=== PATIENT | female | born 1995 | race Caucasian/White ===

== ENCOUNTER 2017-03-10 21:40 | Emergency (ER) | payer MEDICAID ==
[~2017-03-10] VITALS: Ht 152.4 cm; Wt 67.3 kg
[2017-03-10 23:48] VITALS: BP 107/70
== END 2017-03-10 23:48 | disposition home or self-care (01) ==
LOC: ED 21:40
DX: R11.10 Vomiting, unspecified (principal); N63.0 Unspecified lump in unspecified breast; R10.9 Unspecified abdominal pain; R19.7 Diarrhea, unspecified; R51 Headache; R53.1 Weakness; R63.0 Anorexia
CPT/HCPCS: Q0162

== ENCOUNTER 2017-07-14 18:23 | Emergency (ER) | payer MEDICAID ==
[~2017-07-14] VITALS: Ht 152.4 cm; Wt 66.4 kg
[2017-07-14 20:56] LABS: BASOPHIL % 0.3 % (0-2); PLATELET COUNT 176 x10^3mcL (130-400); RED CELL DISTRIBUTION WIDTH 12.9 % (11.5-14.5)
[2017-07-14 21:01] LABS: CARBON DIOXIDE 24.6 mmol/L (21-32); CHLORIDE SERUM 103 mmol/L (98-107); CREATININE SERUM 0.7 mg/dL (0.6-1.0); GFR1 > 60 mL/min; GLUCOSE SERUM 81 mg/dL (74-106); POTASSIUM SERUM 3.4 mmol/L (3.5-5.1); SODIUM SERUM 138 mmol/L (136-145)
[2017-07-14 21:05] LABS: ALBUMIN 3.7 g/dL (3.4-5.0); ALKALINE PHOSPHATASE 73 U/L (46-116); ALT/SGPT 52 U/L (14-59); AST/SGOT 26 U/L (15-37); BILIRUBIN TOTAL 0.1 mg/dL (0.20-1.00); TOTAL PROTEIN, SERUM 7.1 g/dL (6.4-8.2)
[2017-07-14 22:25] VITALS: BP 129/72
== END 2017-07-14 21:30 | disposition home or self-care (01) ==
LOC: ED 18:23
PROVIDERS: Emergency Medicine
DX: B34.9 Viral infection, unspecified (principal)
CPT/HCPCS: 36415; 87804